=== PATIENT | female | born 1990 | race African-American/Black ===

== ENCOUNTER 2017-07-05 04:55 | Emergency (ER) | payer BC ==
[~2017-07-05] VITALS: Ht 167.6 cm; Wt 57.0 kg
[2017-07-05] MEDS ORDERED: MORPHINE SULFATE 10 MG/ML CPJ IM ONE (05:15)
[2017-07-05] MEDS ORDERED: KETOROLAC 30MG/ML VIAL IM ONE (05:15)
[2017-07-05 05:45] LABS: HCG SCREEN NEGATIVE
[2017-07-05] MEDS ORDERED: SODIUM CHLORIDE 0.9% 500 ML IV ONE (06:23)
[2017-07-05] MEDS ORDERED: KETOROLAC 30MG/ML VIAL IV ONE (06:30)
[2017-07-05] MEDS ORDERED: ONDANSETRON HCL 4MG/2ML VIAL IV ONE (06:30)
[2017-07-05] MEDS ORDERED: MORPHINE SULFATE 4 MG/ML CPJ (NOT FOR IM USE) IV ONE (06:30)
[2017-07-05 07:10] VITALS: BP 123/77
== END 2017-07-05 08:18 | disposition home or self-care (01) ==
LOC: EDSEX 04:55 → ER 04:55
DX: S16.1XXA Strain of muscle, fascia and tendon at neck level, initial encounter (principal); I10 Essential (primary) hypertension; V43.52XA Car driver injured in collision with other type car in traffic accident, initial encounter; Y93.9 Activity, unspecified; Y92.410 Unspecified street and highway as the place of occurrence of the external cause
CPT/HCPCS: 71045; 72040; 84703; 96374; 96375; 99285; J1885; J2270; J2405; J7040; L0172